=== PATIENT | male | born 1955 | race Hispanic/Latino ===

== ENCOUNTER 2024-03-18 11:13 | Emergency (ER) | payer SELFPAY ==
[2024-03-18] MEDS ORDERED: ONDANSETRON 4 MG/2 ML VIAL ONE ×2 (11:47→15:25)
[2024-03-18] MEDS ORDERED: NA CHLORIDE 0.9% 500 ML ONE (11:48)
[2024-03-18] MEDS ORDERED: MORPHINE 4 MG/ML SYR ONE (11:48)
[2024-03-18 11:57] LABS: Absolute Lymphocytes (CBC) 0.3 K/uL (0.7-4.9); Absolute Monocytes 0.8 K/uL (0.1-1.3); Absolute Neutrophil 5.5 K/uL (1.8-8.0); Basophils % 0.1 % (0-1.3); Hematocrit 41.4 % (39.6-49.0); Lymphocytes % 4.7 % (15.3-44.8); MCHC 33.9 g/dL (32.0-36.0); MCV 91.2 fL (80-100); MPV 7.5 fL (7.6-11.3); Monocytes % 12.4 % (3.3-12.3); Neutrophils % 82.8 % (41.7-73.7); Platelets 170 thou/uL (152-406); RBC Red Blood Cell Count 4.54 M/uL (4.33-5.43); Red Cell Distribution Width 13.8 % (12.1-15.2)
[2024-03-18 12:03] LABS: PT Prothrombin Time 13.7 SECONDS (9.4-12.5); Protime INR 1.23
[2024-03-18 12:14] LABS: Albumin 3.3 g/dL (3.4-5.0); Albumin/Globulin Ratio 0.8 (1.1-1.8); Anion Gap 10.1 mEq/L (5.0-15.0); Bilirubin Total 1.2 mg/dL (0.2-1.0); Globulin 4.4 g/dL (2.3-3.5); Potassium 3.1 mEq/L (3.5-5.1); Protein, Total 7.7 g/dL (6.4-8.2)
[2024-03-18 12:51] LABS: Band Neutrophils 10 % (0-1); Blood Morphology Comment NOT SEEN (NOT SEEN); Differential Total Cells Count 100; Dohle Bodies PRESENT; Lymphocytes 6 % (15-42); Monocytes 8 % (0-10); Platelet Estimate ADEQ; Segmented Neutrophils 76 % (40-80); Toxic Granulation 1+
--- NOTE | 2024-03-18 15:01 | RAD REPORT ---
EXAMINATION: CT Abdomen Pelvis W Contrast CLINICAL INDICATION: Male, 68 years old. ABD PAIN TECHNIQUE: CT abdomen and pelvis was performed, after the administration of IV contrast, as per [facility] protocol. Axial, sagittal and coronal reconstructions were obtained. One or more of the following dose reduction techniques were used: Automated exposure control, adjustment of the mA and k V according to patient size, and iterative reconstruction. Unless otherwise specified, incidental findings do not require dedicated imaging follow-up. COMPARISON: No prior exam. FINDINGS: LOWER CHEST: The visualized lung bases are clear. LIVER: Normal in size and contour. No focal lesion. BILIARY SYSTEM: Marked distention of the gallbladder. Few radiodense dependently layering calculi. SPLEEN: Normal size. No focal lesion. PANCREAS: No mass, ductal dilation, or shelly-pancreatic fluid. ADRENALS: Normal; no mass. KIDNEYS: Exophytic superior pole 1.7 cm cyst with marginal calcification Normal size and contour. No hydronephrosis. URINARY BLADDER: Unremarkable. GASTROINTESTINAL TRACT: Diffuse wall edema involving the colon, most pronounced along the descending, and sigmoid colon, as well as the rectum, where there is surrounding adventitial fat stranding. No extraluminal air or adjacent fluid collections. No Evidence of free air, significant intra-abdominal free fluid, bowel obstruction or abscess. APPENDIX: Normal appendix. LYMPH NODES: No lymphadenopathy. MUSCULOSKELETAL: No acute or suspicious osseous abnormality. ADDITIONAL FINDINGS: Marked prostatomegaly. Small left inguinal hernia containing fat. IMPRESSION: Diffuse inflammatory changes throughout the colon, most pronounced along the distal descending sigmoi d colon to rectum, suggestive of infectious or inflammatory colitis, including postoperative colitis. No findings to suggest small bowel involvement. Cholelithiasis with marked distention of the gallbladder, but no other CT findings to suggest inflamm ation. Please correlate clinically. Marked prostatomegaly.
--- NOTE | 2024-03-18 15:13 | EDPHYS ---
Physician Documentation [facility] Name: Tayo Lacey Age: 68 yrs Sex: Male : 1955 Arrival Date: 03/18/2024 Time: 11:13 Bed 16 Private MD: ED Physician Teddy Loaiza HPI: 03/18 11:22 This 68 yrs old Male presents to ER via Unassigned with complaints of n/v/d. ec2 11:22 Patient with history of HIV, hypertension, hyperlipidemia arrives today for evaluation ec2 of abdominal pain along with nausea, vomiting, diarrhea. He initially reports that he developed nausea and vomiting onset of several days ago, states that he developed diarrhea subsequently and then after multiple bouts of diarrhea started having pain in the rectum and bleeding in his stool. Patient reports otherwise some left-sided abdominal pain. Reports no urinary complaints. Reports no anticoagulants.. Historical: - Allergies: 11:32 No Known Allergies; rs5 - PMHx: 11:32 HIV; Hypercholesterolemia; Hypertensive disorder; rs5 - PSHx: 11:32 None; rs5 - Immunization history:: Adult Immunizations up to date. - Infectious Disease History:: Denies. - Social history:: Smoking status: Patient denies any tobacco usage or history of. ROS: 11:22 Constitutional: as per hpi ec2 Exam: 11:22 Constitutional: GEN: NAD Head: atraumatic Eyes: EOMI Ears: External ears are ec2 normal. CV: regular rate LUNGS: no respiratory distress ABD: non-distended, soft, not guarding, not rigid. examination performed under nurse supervision, no bright red blood noted, fissure appreciated. SKIN: no evidence of rashes MSK: no evidence of trauma Vital Signs: 11:28 BP 137 / 74; Pulse 74; Resp 17; Pulse Ox 99% on R/A; rs5 12:02 BP 144 / 81; Pulse 76; Resp 16; Temp 98.2; Pulse Ox 98% on R/A; rs5 14:45 BP 132 / 77; Pulse 70; Resp 17; Pulse Ox 99% on R/A; rs5 15:40 BP 140 / 74; Pulse 77; Resp 17; Pulse Ox 99% on R/A; rs5 MDM: 11:21 Medical Screening Exam initiated ec2 11:22 Data reviewed: vital signs, nurses notes. ED course: Patient arrives today for ec2 evaluation of abdominal pain along with nausea, vomiting, diarrhea as well as bright red blood per rectum. Examination reveals abdominal findings and findings as above. Will obtain lab work, CT imaging, give the patient morphine and Zofran for his symptoms.. 15:12 ED course: On reassessment patient reports marked improvement in his symptoms. Patient ec2 reports some recurrence of his nausea however initial dose of Zofran had significantly helped. States he is known to the bathroom multiple times without any additional blood in the stool. I will discharge him with antibiotics for intestinal infection, as well as nausea medications for his nausea. Will have the patient follow-up with PCP.. 03/18 11:21 Order name: CBC with Diff; Complete Time: 12:55 ec2 03/18 11:21 Order name: CMP; Complete Time: 12:17 ec2 03/18 11:21 Order name: Lipase; Complete Time: 12:17 ec2 03/18 11:21 Order name: PT-INR; Complete Time: 12:17 ec2 03/18 11:21 Order name: Ptt, Activated; Complete Time: 12:17 ec2 03/18 12:51 Order name: Manual Differential; Complete Time: 12:55 EDMS 03/18 11:21 Order name: CT Abd/Pelvis - IV Contrast Only; Complete Time: 15:07 ec2 03/18 11:21 Order name: IV Saline Lock; Complete Time: 11:53 ec2 03/18 11:21 Order name: Labs collected and sent; Complete Time: 11:53 ec2 Administered Medications: 11:50 Drug: Ondansetron IVP 4 mg IVP once; over 2 minutes Route: IVP; Site: left antecubital; rs5 12:10 Follow up: Response: No adverse reaction; Nausea is decreased rs5 11:50 Drug: morphine IVP or IV 4 mg IVP once over 4 mins Route: IVP; Infused Over: 4 mins; rs5 Site: left antecubital; 12:01 Follow up: Response: No adverse reaction; Pain is decreased rs5 11:58 Drug: NS 0.9% IV 500 ml 500 ml IV at 1 bolus once; to be given as a bolus over 30 rs5 minutes Volume: 500 ml; Route: IV; Rate: 1 bolus; Site: left antecubital; 12:28 Follow up: Response: No adverse reaction; IV Status: Completed infusion; IV Intake: rs5 500ml 15:20 Drug: Ondansetron IVP 4 mg IVP once; over 2 minutes Route: IVP; Site: left antecubital; rs5 15:40 Follow up: Response: No adverse reaction; Nausea is decreased rs5 15:22 Drug: Amoxicillin-Clavulanate PO 875 mg PO once Route: PO; rs5 15:40 Follow up: Response: No adverse reaction rs5 Disposition Summary: 03/18/24 15:12 Discharge Ordered Notes: Location: Home ec2 Condition: Stable ec2 Diagnosis - Hypokalemia ec2 - Hypo-osmolality and hyponatremia ec2 - Rectal Bleeding ec2 - Left sided colitis with rectal bleeding ec2 Followup: ec2 - With: Private Physician - When: - Reason: Recheck today's complaints, Re-evaluation by your physician Discharge Instructions: - Discharge Summary Sheet ec2 - Bloody Diarrhea ec2 Forms: - Medication Reconciliation Form ec2 - Antibiotic Education ec2 - Prescription Opioid Use ec2 - Patient Portal Instructions ec2 - Leadership Thank You Letter ec2 Prescriptions: - Augmentin 875-125 mg Oral Tablet - take 1 tablet ORAL route every 12 hours for 10 days; 20 tablet; Refills: 0, ec2 Product Selection Permitted - Zofran 4 mg Oral Tablet - take 1 tablet ORAL route every 12 hours As needed; 20 tablet; Refills: 0, ec2 Product Selection Permitted Signatures: Dispatcher [employer] Elpidio Bautista RN RN rs5 Teddy Loaiza MD MD ec2 Corrections: (The following items were deleted from the chart) 11: 11:22 CBC+H.LAB.BRZ ordered. EDMS EDMS 11:22 11:22 COMPREHENSIVE METABOLIC PANEL+C.LAB.BRZ ordered. EDMS EDMS 11:22 11:22 LIPASE+C.LAB.BRZ ordered. EDMS EDMS 11:22 11:22 PROTIME (+INR)+COAG.LAB.BRZ ordered. EDMS EDMS 11:22 11:22 PTT, ACTIVATED+COAG.LAB.BRZ ordered. EDMS EDMS
--- NOTE | 2024-03-18 15:13 | ER ---
Nurse's Notes [facility] Name: Tayo Lacey Age: 68 yrs Sex: Male : 1955 Arrival Date: 03/18/2024 Time: 11:13 Bed 16 Private MD: Diagnosis: Hypokalemia;Hypo-osmolality and hyponatremia;Rectal Bleeding;Left sided colitis with rectal bleeding Presentation: 03/18 11:28 Chief complaint: EMS states: Abdominal pain N/V and bloody diarrhea x3 days. rs5 Coronavirus screen: At this time, the client does not indicate any symptoms associated with coronavirus-19. Ebola Screen: No symptoms or risks identified at this time. Initial Sepsis Screen: Does the patient meet any 2 criteria? No. Patient's initial sepsis screen is negative. Does the patient have a suspected source of infection? No. Patient's initial sepsis screen is negative. Risk Assessment: Do you want to hurt yourself or someone else? Patient reports no desire to harm self or others. Onset of symptoms was March 18, 2024. 11:28 Method Of Arrival: EMS: [facility] rs5 11:28 Acuity: ZACH 3 rs5 Historical: - Allergies: 11:32 No Known Allergies; rs5 - PMHx: 11:32 HIV; Hypercholesterolemia; Hypertensive disorder; rs5 - PSHx: 11:32 None; rs5 - Immunization history:: Adult Immunizations up to date. - Infectious Disease History:: Denies. - Social history:: Smoking status: Patient denies any tobacco usage or history of. Screenin:25 [facility] ED Fall Risk Assessment (Adult) History of falling in the last 3 months, rs5 including since admission No falls in past 3 months (0 pts) Confusion or Disorientation No (0 pts) Intoxicated or Sedated No (0 pts) Impaired Gait No (0 pts) Mobility Assist Device Used No (0 pt) Altered Elimination No (0 pt) Score/Fall Risk Level 0 - 2 = Low Risk Oriented to surroundings, Maintained a safe environment. Abuse screen: Denies threats or abuse. Nutritional screening: No deficits noted. Tuberculosis screening: No symptoms or risk factors identified. Assessment: 11:25 General: Appears in no apparent distress. uncomfortable, Behavior is calm, cooperative. rs5 Pain: Complains of pain in abdomen Pain currently is 8 out of 10 on a pain scale. Quality of pain is described as aching, Is continuous. Neuro: Level of Consciousness is awake, alert, obeys commands, Oriented to person, place, time, situation. Cardiovascular: Patient's skin is warm and dry. Respiratory: Airway is patent Respiratory effort is even, unlabored, Respiratory pattern is regular, symmetrical. GI: Abdomen is round non-distended, Abd is soft and non tender X 4 quads. Reports diarrhea, nausea, vomiting. : No signs and/or symptoms were reported regarding the genitourinary system. EENT: No signs and/or symptoms were reported regarding the EENT system. Derm: Skin is intact, Skin is pink, warm \T\ dry. Musculoskeletal: Range of motion: intact in all extremities. 12:44 Reassessment: Patient and/or family updated on plan of care and expected duration. Pain rs5 level reassessed. Patient is alert, oriented x 3, equal unlabored respirations, skin warm/dry/pink. 13:55 Reassessment: Patient and/or family updated on plan of care and expected duration. Pain rs5 level reassessed. Patient is alert, oriented x 3, equal unlabored respirations, skin warm/dry/pink. 14:45 Reassessment: Patient and/or family updated on plan of care and expected duration. Pain rs5 level reassessed. Patient is alert, oriented x 3, equal unlabored respirations, skin warm/dry/pink. 15:37 Reassessment: Patient and/or family updated on plan of care and expected duration. Pain rs5 level reassessed. Patient is alert, oriented x 3, equal unlabored respirations, skin warm/dry/pink. Vital Signs: 11:28 BP 137 / 74; Pulse 74; Resp 17; Pulse Ox 99% on R/A; rs5 12:02 BP 144 / 81; Pulse 76; Resp 16; Temp 98.2; Pulse Ox 98% on R/A; rs5 14:45 BP 132 / 77; Pulse 70; Resp 17; Pulse Ox 99% on R/A; rs5 15:40 BP 140 / 74; Pulse 77; Resp 17; Pulse Ox 99% on R/A; rs5 ED Course: 11:20 Patient arrived in ED. ec2 11:21 Teddy Loaiza MD is Attending Physician. ec2 11:25 Elpidio Dc, RN is Primary Nurse. rs5 11:25 No provider procedures requiring assistance completed. rs5 11:25 Patient has correct armband on for positive identification. Placed in gown. Bed in low rs5 position. Call light in reach. Side rails up X2. 11:32 Triage completed. rs5 11:53 Inserted saline lock: 22 gauge in left antecubital area, using aseptic technique. Blood nh2 collected. Flushed with 10 mL NS. 11:53 CBC with Diff Sent. nh2 11:53 CMP Sent. nh2 11:53 Lipase Sent. nh2 11:53 Ptt, Activated Sent. nh2 11:53 PT-INR Sent. nh2 12:52 CT Abd/Pelvis - IV Contrast Only In Process Unspecified. EDMS 15:38 Provided Education on: discharge instructions . rs5 15:40 IV discontinued, intact, bleeding controlled, No redness/swelling at site. Pressure rs5 dressing applied. Administered Medications: 11:50 Drug: Ondansetron IVP 4 mg IVP once; over 2 minutes Route: IVP; Site: left antecubital; rs5 12:10 Follow up: Response: No adverse reaction; Nausea is decreased rs5 11:50 Drug: morphine IVP or IV 4 mg IVP once over 4 mins Route: IVP; Infused Over: 4 mins; rs5 Site: left antecubital; 12:01 Follow up: Response: No adverse reaction; Pain is decreased rs5 11:58 Drug: NS 0.9% IV 500 ml 500 ml IV at 1 bolus once; to be given as a bolus over 30 rs5 minutes Volume: 500 ml; Route: IV; Rate: 1 bolus; Site: left antecubital; 12:28 Follow up: Response: No adverse reaction; IV Status: Completed infusion; IV Intake: rs5 500ml 15:20 Drug: Ondansetron IVP 4 mg IVP once; over 2 minutes Route: IVP; Site: left antecubital; rs5 15:40 Follow up: Response: No adverse reaction; Nausea is decreased rs5 15:22 Drug: Amoxicillin-Clavulanate PO 875 mg PO once Route: PO; rs5 15:40 Follow up: Response: No adverse reaction rs5 Medication: 11:25 VIS not applicable for this client. rs5 Intake: 12:28 IV: 500ml; Total: 500ml. rs5 Outcome: 15:12 Discharge ordered by . ec2 15:40 Discharged to home ambulatory, rs5 15:40 Condition: stable rs5 15:40 Discharge instructions given to patient, family, Instructed on discharge instructions, follow up and referral plans. medication usage, Demonstrated understanding of instructions, follow-up care, medications, Prescriptions given X 2, 15:42 Patient left the ED. nh2 Signatures: Dispatcher [employer] Elpidio Bautista RN RN rs5 Teddy Loaiza MD MD ec2 Lester Rosario Jr nh2 Corrections: (The following items were deleted from the chart) 14:47 12:02 BP 144 / 81; Pulse 76bpm; Resp 16bpm; Pulse Ox 98% RA; rs5 rs5
[2024-03-18] MEDS ORDERED: AMOX/K CLAV 875 MG TAB ONE (15:25)
[2024-03-18 16:11] VITALS: TEMP 98.2
[2024-03-18 16:12] VITALS: BP 132/77; O2SAT 99
== END 2024-03-18 15:42 | disposition home or self-care (01) ==
LOC: ER 11:13
DX: K51.511 Left sided colitis with rectal bleeding (principal); E87.6 Hypokalemia; E87.1 Hypo-osmolality and hyponatremia
CPT/HCPCS: 36415; 74177; 80053; 83690; 85025; 85610; 85730; 96374; 96375; 99284; J2405; J7040; Q9967